=== PATIENT | male | born 1965 | race Caucasian/White ===

== ENCOUNTER 2017-11-20 09:45 | Emergency (ER) | payer SELFPAY ==
[~2017-11-20] VITALS: Ht 188 cm; Wt 76.7 kg
[2017-11-20] MEDS ORDERED: FAMOTIDINE 20 MG/2 ML ONE (10:29)
[2017-11-20] MEDS ORDERED: ONDANSETRON ODT 4 MG ONE (10:29)
[2017-11-20] MEDS ORDERED: SODIUM CHLORIDE 0.9% 1,000ML IVBOLUS ONE (10:30)
[2017-11-20] MEDS ORDERED: FAMOTIDINE 20 MG/2 ML IVP ONE (10:30)
[2017-11-20] MEDS ORDERED: SODIUM CHLORIDE FLUSH 10ML SYR IVF ONE (10:30)
[2017-11-20] MEDS ORDERED: ONDANSETRON ODT 4 MG PO ONE (10:30)
[2017-11-20 10:39] LABS: BASOPHILS # (AUTO) 0.01 x10^3/uL (0-0.1); BASOPHILS % (AUTO) 0 % (0-1); EOSINOPHILS # (AUTO) 0.01 x10^3/uL (0-0.4); EOSINOPHILS % (AUTO) 0 % (1-7); LYMPHOCYTES # (AUTO) 0.93 x10^3/uL (1-3.4); LYMPHOCYTES % (AUTO) 6 % (22-44); MD NO; MEAN CORPUSCULAR HEMOGLOBIN 32.8 pg (27.5-34.5); MEAN CORPUSCULAR HGB CONC 34.6 g/dL (33.2-36.2); MEAN CORPUSCULAR VOLUME 94.9 fL (81-97); MEAN PLATELET VOLUME 9.3 fL (7.4-10.4); MONOCYTES # (AUTO) 0.58 x10^3/uL (0.2-0.8); MONOCYTES % (AUTO) 4 % (2-9); NEUTROPHILS # (AUTO) 14.33 x10^3/uL (1.8-6.8); NEUTROPHILS % (AUTO) 90 % (42-75); PLATELET COUNT 164 x10^3/uL (130-400); RED BLOOD COUNT 5.37 x10^6/uL (4.38-5.82); RED CELL DISTRIBUTION WIDTH 12.3 % (9.4-14.8)
[2017-11-20 10:48] VITALS: BP 188/115
[2017-11-20 10:49] LABS: ALANINE AMINOTRANSFERASE 27 U/L (12-78); ALBUMIN 3.4 g/dL (3.4-5.0); ANION GAP 16 mmol/L (5-15); CALCIUM 9.3 mg/dL (8.5-10.1); CHLORIDE 91 mmol/L (98-107); CREATININE 1.11 mg/dL (0.7-1.3)
[2017-11-20 10:51] LABS: ALKALINE PHOSPHATASE 129 U/L (45-117); BILIRUBIN,TOTAL 1.5 mg/dL (0.2-1.0); TOTAL PROTEIN 7.3 g/dL (6.4-8.2)
[2017-11-20] MEDS ORDERED: INSULIN REGULAR 100 UNITS/ML, 3ML VIAL ONE ×2 (11:52→11:57)
[2017-11-20] MEDS ORDERED: INSULIN REGULAR 100 UNITS/ML, 3ML VIAL SQ-INSULIN ONE (12:00)
[2017-11-20] MEDS ORDERED: METOCLOPRAMIDE 5 MG/ML, 2ML ONE (12:26)
[2017-11-20] MEDS ORDERED: METOCLOPRAMIDE 5 MG/ML, 2ML IVPush ONE (12:30)
[2017-11-20 12:40] LABS: MICROSCOPIC INDICATED
[2017-11-20 12:54] LABS: CULTURE INDICATED? NO
[2017-11-21] MEDS ORDERED: BP MED PO (11:40)
[2017-11-21] MEDS ORDERED: GABA-827 PO (19:34)
== END 2017-11-20 12:57 | disposition home or self-care (01) ==
LOC: ED 11:00
DX: K52.9 Noninfective gastroenteritis and colitis, unspecified (principal); E11.65 Type 2 diabetes mellitus with hyperglycemia; F17.200 Nicotine dependence, unspecified, uncomplicated; Z91.14 Patient's other noncompliance with medication regimen
CPT/HCPCS: 36415; 80053; 81001; 82962; 83690; 85025; 93005; 96361; 96372; 96374; 99285; J7030; Q0162; S0028

== ENCOUNTER 2017-11-21 11:18 | Inpatient (IN) | payer MEDICAID, OTHER ==
[~2017-11-21] VITALS: Ht 188 cm; Wt 80.1 kg
[2017-11-21] MEDS ORDERED: BP MED PO (11:40)
[2017-11-21] MEDS ORDERED: ASPIRIN 81 MG TABLET CHEW PO ONE (12:00)
[2017-11-21] MEDS ORDERED: SODIUM CHLORIDE FLUSH 10ML SYR IVF ONE (12:00)
[2017-11-21] MEDS ORDERED: SODIUM CHLORIDE 0.9% 1,000ML IVBOLUS ONE (12:00)
[2017-11-21] MEDS ORDERED: ASPIRIN 81 MG TABLET CHEW ONE (12:06)
[2017-11-21] MEDS ORDERED: MORPHINE SULFATE 4 MG/ML, 1ML ONE ×2 (12:06→12:33)
[2017-11-21] MEDS ORDERED: ONDANSETRON ODT 4 MG ONE (12:06)
[2017-11-21] MEDS: MORPHINE SULFATE 4 MG/ML, 1ML IVPush PRN ×2 (12:10→12:37)
[2017-11-21 12:15] LABS: BASOPHILS # (AUTO) 0.04 x10^3/uL (0-0.1); BASOPHILS % (AUTO) 0 % (0-1); EOSINOPHILS # (AUTO) 0.02 x10^3/uL (0-0.4); EOSINOPHILS % (AUTO) 0 % (1-7); LYMPHOCYTES # (AUTO) 1.01 x10^3/uL (1-3.4); LYMPHOCYTES % (AUTO) 10 % (22-44); MD NO; MEAN CORPUSCULAR HEMOGLOBIN 32.8 pg (27.5-34.5); MEAN CORPUSCULAR HGB CONC 34.8 g/dL (33.2-36.2); MEAN CORPUSCULAR VOLUME 94.4 fL (81-97); MEAN PLATELET VOLUME 9.4 fL (7.4-10.4); MONOCYTES % (AUTO) 6 % (2-9); NEUTROPHILS # (AUTO) 8.21 x10^3/uL (1.8-6.8); NEUTROPHILS % (AUTO) 83 % (42-75); PLATELET COUNT 139 x10^3/uL (130-400); RED BLOOD COUNT 5.56 x10^6/uL (4.38-5.82); RED CELL DISTRIBUTION WIDTH 12.5 % (9.4-14.8)
[2017-11-21 12:26] LABS: ALANINE AMINOTRANSFERASE 31 U/L (12-78); ALBUMIN 3.5 g/dL (3.4-5.0); ANION GAP 12 mmol/L (5-15); CALCIUM 8.6 mg/dL (8.5-10.1); CHLORIDE 94 mmol/L (98-107); CREATININE 0.98 mg/dL (0.7-1.3)
[2017-11-21 12:30] LABS: ALKALINE PHOSPHATASE 118 U/L (45-117); BILIRUBIN,TOTAL 1.3 mg/dL (0.2-1.0); TOTAL PROTEIN 7.7 g/dL (6.4-8.2); TROPONIN I 0.088 ng/mL (0.000-0.045)
[2017-11-21] MEDS ORDERED: ONDANSETRON ODT 4 MG PO ONE (12:30)
[2017-11-21] MEDS ORDERED: NITROGLYCERIN OINT 2%, 1GM TP ONE ×2 (13:56→14:00)
[2017-11-21] MEDS ORDERED: ONDANSETRON 2MG/ML, 2ML IVPush PRN (15:00)
[2017-11-21] MEDS ORDERED: GLIMEPIRIDE 1 MG TABLET PO SCH (15:00)
[2017-11-21] MEDS ORDERED: GABAPENTIN 400 MG CAPSULE PO PRN (15:00)
[2017-11-21] MEDS ORDERED: hydrALAzine 20 MG/ML, 1ML IVPush PRN (15:00)
[2017-11-21] MEDS ORDERED: HYDROcodone/APAP 5/325 TABLET PO PRN (15:00)
[2017-11-21] MEDS ORDERED: ACETAMINOPHEN 325 MG TABLET PO PRN (15:00)
[2017-11-21 15:37] VITALS: BP 178/126
[2017-11-21] MEDS: METOPROLOL TARTRATE 50 MG TABLET PO SCH ×2 (16:00→21:55)
[2017-11-21] MEDS: ENOXAPARIN 40 MG/0.4 ML SQ SCH (16:00)
[2017-11-21] MEDS: NICOTINE 21 MG/24 HR PATCH.TD24 TD SCH (16:01)
[2017-11-21] MEDS: LISINOPRIL 20 MG TABLET PO SCH ×2 (16:01→21:54)
[2017-11-21] MEDS: POTASSIUM CHLORIDE 40 MEQ in SODIUM CHLORIDE 0.9% 500 ML IV SCH ×2 (16:01→21:04)
[2017-11-21] MEDS: INSULIN LISPRO 100 UNITS/ML, PEN SQ-INSULIN SCH ×2 (17:32→21:56)
[2017-11-21 19:29] VITALS: BP 128/87
[2017-11-21] MEDS ORDERED: GABA-827 PO (19:34)
[2017-11-21] MEDS ORDERED: INSULIN GLARGINE 100 UNITS/ML, PEN SQ-INSULIN SCH (21:00)
[2017-11-21] MEDS: morphine SULFATE 10 MG/ML, 1ML IVPush PRN ×2 (21:04→21:24)
[2017-11-21] MEDS: PANTOPRAZOLE 40 MG IV IVPush SCH (21:24)
[2017-11-21 21:42] LABS: TROPONIN I 0.086 ng/mL (0.000-0.045)
[2017-11-21] MEDS: GABAPENTIN 400 MG CAPSULE PO SCH (21:54)
[2017-11-21] MEDS ORDERED: ONDANSETRON 4 MG TABLET ONE (21:59)
[2017-11-22] VITALS (9 sets, daily range): BP systolic 111–166; BP diastolic 72–102
[2017-11-22] MEDS: morphine SULFATE 10 MG/ML, 1ML IVPush PRN ×2 (01:13→19:27)
[2017-11-22 04:45] LABS: BASOPHILS # (AUTO) 0.03 x10^3/uL (0-0.1); BASOPHILS % (AUTO) 0 % (0-1); EOSINOPHILS % (AUTO) 1 % (1-7); LYMPHOCYTES # (AUTO) 1.74 x10^3/uL (1-3.4); LYMPHOCYTES % (AUTO) 22 % (22-44); MD NO; MEAN CORPUSCULAR HEMOGLOBIN 33.2 pg (27.5-34.5); MEAN CORPUSCULAR VOLUME 94.9 fL (81-97); MEAN PLATELET VOLUME 9.2 fL (7.4-10.4); MONOCYTES # (AUTO) 0.67 x10^3/uL (0.2-0.8); MONOCYTES % (AUTO) 8 % (2-9); NEUTROPHILS # (AUTO) 5.55 x10^3/uL (1.8-6.8); NEUTROPHILS % (AUTO) 69 % (42-75); PLATELET COUNT 119 x10^3/uL (130-400); RED CELL DISTRIBUTION WIDTH 12.4 % (9.4-14.8)
[2017-11-22 04:54] LABS: ALANINE AMINOTRANSFERASE 23 U/L (12-78); ALBUMIN 2.5 g/dL (3.4-5.0); ANION GAP 7 mmol/L (5-15); CALCIUM 7.8 mg/dL (8.5-10.1); CHLORIDE 102 mmol/L (98-107); CREATININE 0.86 mg/dL (0.7-1.3)
[2017-11-22 04:57] LABS: ALKALINE PHOSPHATASE 77 U/L (45-117); BILIRUBIN,TOTAL 0.5 mg/dL (0.2-1.0); CHOL/HDL RATIO 6.4; CHOLESTEROL, TOTAL 204 mg/dL (140-239); HDL CHOL % 16 % (26-37); HDL CHOLESTEROL (DIRECT) 32 mg/dL (40-60); TOTAL PROTEIN 5.6 g/dL (6.4-8.2); TRIGLYCERIDES 436 mg/dL (50-200)
[2017-11-22 06:08] LABS: TROPONIN I 0.084 ng/mL (0.000-0.045)
[2017-11-22] MEDS: INSULIN LISPRO 100 UNITS/ML, PEN SQ-INSULIN SCH ×4 (08:08→21:58)
[2017-11-22] MEDS ORDERED: NITROGLYCERIN SINGLE TAB 0.4 MG SL ONE (09:53)
[2017-11-22] MEDS: GABAPENTIN 400 MG CAPSULE PO SCH ×3 (10:36→21:57)
[2017-11-22] MEDS: METOPROLOL TARTRATE 50 MG TABLET PO SCH ×2 (10:36→21:56)
[2017-11-22] MEDS: LISINOPRIL 20 MG TABLET PO SCH ×2 (10:36→21:57)
[2017-11-22] MEDS: GLIMEPIRIDE 1 MG TABLET PO SCH (10:36)
[2017-11-22 10:37] LABS: HEMOGLOBIN A1C 10.9 % (4.2-6.3)
[2017-11-22] MEDS: PANTOPRAZOLE 40 MG IV IVPush SCH ×2 (10:37→21:57)
[2017-11-22] MEDS: NICOTINE 21 MG/24 HR PATCH.TD24 TD SCH (16:33)
[2017-11-22] MEDS: ENOXAPARIN 40 MG/0.4 ML SQ SCH (16:34)
[2017-11-22] MEDS ORDERED: SODIUM CHLORIDE 0.9% 1,000 ML IV ONE (16:36)
[2017-11-22] MEDS ORDERED: NITROGLYCERIN 0.4 MG BOTTLE (25 TABS) SL ONE (18:44)
[2017-11-22] MEDS ORDERED: NITROGLYCERIN 0.4 MG/SPRAY SL PRN (19:00)
[2017-11-22] MEDS: NITROGLYCERIN 0.4 MG BOTTLE (25 TABS) SL PRN ×2 (19:11→19:16)
[2017-11-22] MEDS: ATORVASTATIN 40 MG TABLET PO SCH (21:57)
[2017-11-22] MEDS: INSULIN GLARGINE 100 UNITS/ML, PEN SQ-INSULIN SCH (22:04)
[2017-11-23 02:55] VITALS: BP 118/79
[2017-11-23 05:09] LABS: ANION GAP 8 mmol/L (5-15); CALCIUM 8.3 mg/dL (8.5-10.1); CHLORIDE 103 mmol/L (98-107); CREATININE 0.93 mg/dL (0.7-1.3)
[2017-11-23] MEDS: INSULIN LISPRO 100 UNITS/ML, PEN SQ-INSULIN SCH ×4 (07:00→21:51)
[2017-11-23 08:18] VITALS: BP 143/91
[2017-11-23] MEDS: GLIMEPIRIDE 1 MG TABLET PO SCH (08:51)
[2017-11-23] MEDS: GABAPENTIN 400 MG CAPSULE PO SCH ×3 (08:52→21:53)
[2017-11-23] MEDS: LISINOPRIL 20 MG TABLET PO SCH ×2 (08:52→21:52)
[2017-11-23] MEDS: PANTOPRAZOLE 40 MG IV IVPush SCH ×2 (08:52→21:52)
[2017-11-23] MEDS: POTASSIUM CHLORIDE 20 MEQ TAB.ER.PRT PO SCH ×2 (08:52→10:35)
[2017-11-23] MEDS: METOPROLOL TARTRATE 50 MG TABLET PO SCH ×2 (08:52→21:52)
[2017-11-23] MEDS ORDERED: VERAPAMIL 2.5 MG/ML, 2ML ONE (13:10)
[2017-11-23] MEDS ORDERED: BIVALIRUDIN 250 MG ONE ×2 (13:10→14:29)
[2017-11-23] MEDS ORDERED: FENTANYL PF 100 MCG/2ML ONE ×2 (13:10→14:06)
[2017-11-23] MEDS ORDERED: MIDAZOLAM 1 MG/ML, 5ML ONE (13:10)
[2017-11-23] MEDS ORDERED: TICAGRELOR 90 MG TABLET ONE (13:10)
[2017-11-23] MEDS ORDERED: HEPARIN 1,000 UNITS/ML, 10ML ONE (13:10)
[2017-11-23] MEDS ORDERED: LIDOCAINE-MPF 2%, 2ML ONE (13:11)
[2017-11-23] MEDS ORDERED: DIPHENHYDRAMINE 50 MG/ML, 1ML ONE (13:33)
[2017-11-23] MEDS ORDERED: ASPIRIN 325 MG TABLET EC ONE (14:24)
[2017-11-23] MEDS: SODIUM CHLORIDE 0.9% 1,000 ML IV SCH ×2 (14:27→23:49)
[2017-11-23] MEDS ORDERED: BIVALIRUDIN 250 MG in DEXTROSE 5% 100 ML IV SCH (14:27)
[2017-11-23 14:30] VITALS: BP 127/85
[2017-11-23] MEDS: NICOTINE 21 MG/24 HR PATCH.TD24 TD SCH (15:38)
[2017-11-23] MEDS ORDERED: ZIPRASIDONE 20 MG INJ IM PRN (17:30)
[2017-11-23] MEDS ORDERED: LORazepam 2 MG/ML, 1ML IVPush PRN (17:30)
[2017-11-23 19:07] VITALS: BP 134/81
[2017-11-23 21:50] VITALS: BP 114/72
[2017-11-23] MEDS: INSULIN GLARGINE 100 UNITS/ML, PEN SQ-INSULIN SCH (21:51)
[2017-11-23] MEDS: ENOXAPARIN 40 MG/0.4 ML SQ SCH (21:52)
[2017-11-23] MEDS: ATORVASTATIN 40 MG TABLET PO SCH (21:52)
[2017-11-23] MEDS: TICAGRELOR 90 MG TABLET PO SCH (21:52)
[2017-11-24 04:50] VITALS: BP 107/73
[2017-11-24] MEDS: SODIUM CHLORIDE 0.9% 1,000 ML IV SCH (05:05)
[2017-11-24 05:17] LABS: ALBUMIN 2.5 g/dL (3.4-5.0); ANION GAP 7 mmol/L (5-15); CALCIUM 8.4 mg/dL (8.5-10.1); CHLORIDE 108 mmol/L (98-107); CREATININE 0.84 mg/dL (0.7-1.3)
[2017-11-24] MEDS: INSULIN LISPRO 100 UNITS/ML, PEN SQ-INSULIN SCH (06:56)
[2017-11-24 06:58] VITALS: BP 106/66
[2017-11-24] MEDS: TICAGRELOR 90 MG TABLET PO SCH (08:15)
[2017-11-24] MEDS: LISINOPRIL 20 MG TABLET PO SCH (08:15)
[2017-11-24] MEDS: PANTOPRAZOLE 40 MG IV IVPush SCH (08:15)
[2017-11-24] MEDS: GLIMEPIRIDE 1 MG TABLET PO SCH (08:15)
[2017-11-24] MEDS: GABAPENTIN 400 MG CAPSULE PO SCH (08:16)
[2017-11-24] MEDS: METOPROLOL TARTRATE 50 MG TABLET PO SCH (08:16)
[2017-11-24] MEDS ORDERED: ASPIRIN 81 MG TABLET EC PO SCH (09:00)
[2017-11-24] MEDS ORDERED: METF500T17 PO (10:09)
[2017-11-24] MEDS ORDERED: ASPI-621 PO (10:09)
[2017-11-24] MEDS ORDERED: TICA90TA PO (10:09)
[2017-11-24] MEDS ORDERED: METO50TA82 PO (10:09)
[2017-11-24] MEDS ORDERED: GLIM4TAB2 PO (10:09)
[2017-11-24] MEDS ORDERED: ATOR40TA78 PO (10:09)
[2017-11-24] MEDS ORDERED: NICO-487 TD (10:09)
[2017-11-24] MEDS ORDERED: LISI-170 PO (10:09)
[2017-11-24] MEDS ORDERED: BIVALIRUDIN 250 MG in DEXTROSE 5% 100 ML IV SCH (14:27)
[2017-11-24] MEDS ORDERED: CLOP75TA52 PO (15:45)
== END 2017-11-24 12:18 | disposition home or self-care (01) | DRG 246 ==
LOC: ED 13:52 → SUATTDRO 14:39 → EDIP 14:45 → 5SO 15:05 → DCLOUNGE 11-24 11:57
PROVIDERS: ADMIT Internal Medicine; ATTEND Internal Medicine
PROC: 027034Z Dilation of Coronary Artery, One Artery with Drug-eluting Intraluminal Device, Percutaneous Approach (ICD-10-PCS; principal; 2017-11-21)
PROC: 4A023N7 Measurement of Cardiac Sampling and Pressure, Left Heart, Percutaneous Approach (ICD-10-PCS; 2017-11-21)
PROC: B2111ZZ Fluoroscopy of Multiple Coronary Arteries using Low Osmolar Contrast (ICD-10-PCS; 2017-11-21)
PROC: B2151ZZ Fluoroscopy of Left Heart using Low Osmolar Contrast (ICD-10-PCS; 2017-11-21)
DX: I21.4 Non-ST elevation (NSTEMI) myocardial infarction (principal); E11.00 Type 2 diabetes mellitus with hyperosmolarity without nonketotic hyperglycemic-hyperosmolar coma (NKHHC); E87.0 Hyperosmolality and hypernatremia; D75.1 Secondary polycythemia; E11.40 Type 2 diabetes mellitus with diabetic neuropathy, unspecified; E11.65 Type 2 diabetes mellitus with hyperglycemia; E78.5 Hyperlipidemia, unspecified; E87.6 Hypokalemia; F41.9 Anxiety disorder, unspecified; I10 Essential (primary) hypertension; I25.10 Atherosclerotic heart disease of native coronary artery without angina pectoris; Z80.1 Family history of malignant neoplasm of trachea, bronchus and lung; Z91.14 Patient's other noncompliance with medication regimen; Z79.899 Other long term (current) drug therapy; Z79.82 Long term (current) use of aspirin; Z88.1 Allergy status to other antibiotic agents
CPT/HCPCS: 36415; 93458; 93571; 99285; C9600; 71046; 78452; 80048; 80053; 80061; 80307; 82040; 82962; 83036; 83690; 83735; 83880; 84100; 84443; 84484; 85018; 85025; 93005; 93017; 93306; 96374; 99156; 99157; C1769; C1894; G0378; J0583; J1644; J1650; J2250; J2405; J3010; J3480; J3490; Q0162; A9502; C1725; C1874; C1887; C9113; C9898; J0360; J1200; J1815; J2060; J2270; J7030; J7040; Q9967

== ENCOUNTER 2018-01-11 14:06 | Observation (INO) | payer MEDICAID ==
[~2018-01-11] VITALS: Ht 185.4 cm; Wt 60.6 kg
[~2018-01-11 14:06] MED LIST: ASPI81TA45 PO; ATOR40TA78 PO; BP MED PO; CLOP75TA52 PO; GABA-827 PO; GLIM4TAB2 PO; LISI-170 PO; METF500T17 PO; METO50TA82 PO; NICO-487 TD; TICA90TA PO
[2018-01-11 15:07] LABS: BASOPHILS # (AUTO) 0.03 x10^3/uL (0-0.1); BASOPHILS % (AUTO) 0 % (0-1); EOSINOPHILS # (AUTO) 0.12 x10^3/uL (0-0.4); EOSINOPHILS % (AUTO) 2 % (1-7); LYMPHOCYTES # (AUTO) 1.23 x10^3/uL (1-3.4); LYMPHOCYTES % (AUTO) 18 % (22-44); MD NO; MEAN CORPUSCULAR HEMOGLOBIN 31.9 pg (27.5-34.5); MEAN CORPUSCULAR HGB CONC 33.2 g/dL (33.2-36.2); MEAN CORPUSCULAR VOLUME 96.3 fL (81-97); MEAN PLATELET VOLUME 7.8 fL (7.4-10.4); MONOCYTES # (AUTO) 0.62 x10^3/uL (0.2-0.8); MONOCYTES % (AUTO) 9 % (2-9); NEUTROPHILS # (AUTO) 4.85 x10^3/uL (1.8-6.8); NEUTROPHILS % (AUTO) 71 % (42-75); PLATELET COUNT 202 x10^3/uL (130-400); RED BLOOD COUNT 3.87 x10^6/uL (4.38-5.82); RED CELL DISTRIBUTION WIDTH 14.1 % (9.4-14.8)
[2018-01-11 15:26] LABS: ALBUMIN 3.4 g/dL (3.4-5.0); ANION GAP 9 mmol/L (5-15); CALCIUM 8.8 mg/dL (8.5-10.1); CHLORIDE 105 mmol/L (98-107)
[2018-01-11 15:31] LABS: ALANINE AMINOTRANSFERASE 75 U/L (12-78); ALKALINE PHOSPHATASE 127 U/L (45-117); BILIRUBIN,TOTAL 0.3 mg/dL (0.2-1.0); CREATININE 1.01 mg/dL (0.7-1.3); TOTAL PROTEIN 7.4 g/dL (6.4-8.2); TROPONIN I < 0.015 ng/mL (0.000-0.045)
[2018-01-11] MEDS ORDERED: SODIUM CHLORIDE FLUSH 10ML SYR IVF ONE (18:30)
[2018-01-11] MEDS ORDERED: OMNIPAQUE 350 MG/ML, 100ML BOTTLE ONE (19:10)
[2018-01-11] MEDS ORDERED: VARE0.5T PO (20:06)
[2018-01-11] MEDS ORDERED: SITA100T PO (20:06)
[2018-01-11] MEDS ORDERED: MULT-658 PO (20:06)
[2018-01-11] MEDS ORDERED: BISACODYL 10 MG SUPP PR PRN (20:30)
[2018-01-11] MEDS ORDERED: ONDANSETRON ODT 4 MG PO PRN (20:30)
[2018-01-11] MEDS ORDERED: ACETAMINOPHEN 325 MG TABLET PO PRN (20:30)
[2018-01-11] MEDS ORDERED: POLYETHYLENE GLYCOL 17 GM PACKET PO PRN (20:30)
[2018-01-11 21:00] VITALS: BP 164/92
[2018-01-11 21:01] LABS: HEMOGLOBIN A1C 7.6 % (4.2-6.3)
[2018-01-11] MEDS ORDERED: NICOTINE 21 MG/24 HR PATCH.TD24 TD SCH (21:30)
[2018-01-11] MEDS: METOPROLOL TARTRATE 50 MG TABLET PO SCH (23:12)
[2018-01-11] MEDS: NS + 20MEQ KCL 1,000 ML IV SCH (23:12)
[2018-01-11] MEDS: ATORVASTATIN 40 MG TABLET PO SCH (23:12)
[2018-01-11] MEDS: GABAPENTIN 400 MG CAPSULE PO SCH (23:13)
[2018-01-12] VITALS (8 sets, daily range): BP systolic 152–188; BP diastolic 83–98
[2018-01-12 06:16] LABS: BASOPHILS # (AUTO) 0.03 x10^3/uL (0-0.1); BASOPHILS % (AUTO) 0 % (0-1); EOSINOPHILS # (AUTO) 0.08 x10^3/uL (0-0.4); EOSINOPHILS % (AUTO) 1 % (1-7); LYMPHOCYTES # (AUTO) 1.18 x10^3/uL (1-3.4); LYMPHOCYTES % (AUTO) 18 % (22-44); MD NO; MEAN CORPUSCULAR HEMOGLOBIN 33.9 pg (27.5-34.5); MEAN CORPUSCULAR VOLUME 96.9 fL (81-97); MONOCYTES # (AUTO) 0.87 x10^3/uL (0.2-0.8); MONOCYTES % (AUTO) 13 % (2-9); NEUTROPHILS # (AUTO) 4.59 x10^3/uL (1.8-6.8); NEUTROPHILS % (AUTO) 68 % (42-75); PLATELET COUNT 178 x10^3/uL (130-400); RED BLOOD COUNT 3.38 x10^6/uL (4.38-5.82); RED CELL DISTRIBUTION WIDTH 14.2 % (9.4-14.8)
[2018-01-12 06:28] LABS: ALBUMIN 2.9 g/dL (3.4-5.0); ANION GAP 6 mmol/L (5-15); CALCIUM 8.3 mg/dL (8.5-10.1); CHLORIDE 111 mmol/L (98-107)
[2018-01-12 06:32] LABS: ALANINE AMINOTRANSFERASE 55 U/L (12-78); ALKALINE PHOSPHATASE 102 U/L (45-117); BILIRUBIN,TOTAL 0.3 mg/dL (0.2-1.0); CHOL/HDL RATIO 2.2; CHOLESTEROL, TOTAL 110 mg/dL (140-239); CREATININE 0.81 mg/dL (0.7-1.3); HDL CHOL % 46 % (26-37); HDL CHOLESTEROL (DIRECT) 51 mg/dL (40-60); LDL CHOLESTEROL,CALCULATED 45 mg/dL (54-169); LDL/HDL RATIO 0.9 (0.5-3.0); TOTAL PROTEIN 6.1 g/dL (6.4-8.2); TRIGLYCERIDES 69 mg/dL (50-200); VLDL CHOLESTEROL 14 mg/dL (0-25)
[2018-01-12] MEDS: GABAPENTIN 400 MG CAPSULE PO SCH ×3 (08:19→20:51)
[2018-01-12] MEDS: VARENICLINE 1MG TABLET PO SCH (08:19)
[2018-01-12] MEDS: CLOPIDOGREL 75 MG TABLET PO SCH (08:20)
[2018-01-12] MEDS: SENNA/DOCUSATE TABLET PO SCH (08:20)
[2018-01-12] MEDS: METOPROLOL TARTRATE 50 MG TABLET PO SCH ×2 (08:20→20:53)
[2018-01-12] MEDS: LINAGLIPTIN 5 MG TAB PO SCH (08:20)
[2018-01-12] MEDS: GLIMEPIRIDE 4 MG TABLET PO SCH ×2 (08:20→15:58)
[2018-01-12] MEDS: MULTIVITAMIN 1 TABLET PO SCH (08:20)
[2018-01-12] MEDS: ASPIRIN 81 MG TABLET EC PO SCH (08:20)
[2018-01-12] MEDS: NS + 20MEQ KCL 1,000 ML IV SCH ×2 (09:44→22:18)
[2018-01-12] MEDS: LISINOPRIL 10 MG TABLET PO SCH (13:37)
[2018-01-12 13:49] LABS: THYROID STIMULATING HORMONE 1.07 mIU/L (0.358-3.740)
[2018-01-12] MEDS: hydrALAzine 20 MG/ML, 1ML IV PRN (15:59)
[2018-01-12] MEDS: ATORVASTATIN 40 MG TABLET PO SCH (20:51)
[2018-01-13 00:55] VITALS: BP 173/95
[2018-01-13] MEDS: hydrALAzine 20 MG/ML, 1ML IV PRN (01:05)
[2018-01-13 05:46] LABS: BASOPHILS # (AUTO) 0.03 x10^3/uL (0-0.1); BASOPHILS % (AUTO) 0 % (0-1); EOSINOPHILS # (AUTO) 0.06 x10^3/uL (0-0.4); EOSINOPHILS % (AUTO) 1 % (1-7); LYMPHOCYTES % (AUTO) 18 % (22-44); MD NO; MEAN CORPUSCULAR HEMOGLOBIN 32.4 pg (27.5-34.5); MEAN CORPUSCULAR HGB CONC 33.6 g/dL (33.2-36.2); MEAN CORPUSCULAR VOLUME 96.4 fL (81-97); MEAN PLATELET VOLUME 8.2 fL (7.4-10.4); MONOCYTES # (AUTO) 0.87 x10^3/uL (0.2-0.8); MONOCYTES % (AUTO) 12 % (2-9); NEUTROPHILS # (AUTO) 5.19 x10^3/uL (1.8-6.8); NEUTROPHILS % (AUTO) 70 % (42-75); PLATELET COUNT 211 x10^3/uL (130-400); RED CELL DISTRIBUTION WIDTH 14.8 % (9.4-14.8)
[2018-01-13 05:58] LABS: ANION GAP 9 mmol/L (5-15); CALCIUM 8.7 mg/dL (8.5-10.1); CHLORIDE 112 mmol/L (98-107); CREATININE 0.81 mg/dL (0.7-1.3)
[2018-01-13] MEDS: NS + 20MEQ KCL 1,000 ML IV SCH (06:00)
[2018-01-13 07:46] VITALS: BP 150/83
[2018-01-13] MEDS: GLIMEPIRIDE 4 MG TABLET PO SCH (08:12)
[2018-01-13] MEDS: VARENICLINE 1MG TABLET PO SCH (08:51)
[2018-01-13] MEDS: LINAGLIPTIN 5 MG TAB PO SCH (08:51)
[2018-01-13] MEDS: CLOPIDOGREL 75 MG TABLET PO SCH (08:51)
[2018-01-13] MEDS: METOPROLOL TARTRATE 50 MG TABLET PO SCH (08:52)
[2018-01-13] MEDS: LISINOPRIL 10 MG TABLET PO SCH (08:52)
[2018-01-13] MEDS: GABAPENTIN 400 MG CAPSULE PO SCH (08:52)
[2018-01-13] MEDS: MULTIVITAMIN 1 TABLET PO SCH (08:52)
[2018-01-13] MEDS: ASPIRIN 81 MG TABLET EC PO SCH (08:53)
[2018-01-13] MEDS: SENNA/DOCUSATE TABLET PO SCH (09:00)
[2018-01-13] MEDS ORDERED: LISI-167 PO (10:13)
[2018-01-13] MEDS ORDERED: LISINOPRIL 10 MG TABLET PO SCH (21:00)
== END 2018-01-13 14:21 | disposition home or self-care (01) ==
LOC: ED 19:58 → INTOOBSV 19:59 → EDIP 19:59 → ED 20:26 → 4EST 20:58 → DCLOUNGE 01-13 14:02
PROVIDERS: ADMIT Internal Medicine; ATTEND Internal Medicine
DX: R27.0 Ataxia, unspecified (principal); E11.42 Type 2 diabetes mellitus with diabetic polyneuropathy; D64.9 Anemia, unspecified; E87.6 Hypokalemia; F12.90 Cannabis use, unspecified, uncomplicated; F17.210 Nicotine dependence, cigarettes, uncomplicated; I10 Essential (primary) hypertension; I25.10 Atherosclerotic heart disease of native coronary artery without angina pectoris; Z59.0 Homelessness; H53.8 Other visual disturbances; I65.09 Occlusion and stenosis of unspecified vertebral artery
CPT/HCPCS: 36415; 70450; 70496; 70498; 70551; 71045; 80048; 80053; 80061; 82607; 82962; 83036; 83735; 84443; 84484; 85025; 93005; 96365; 96366; 96375; 96376; 97162; 97165; 99284; G0378; G8978; G8979; G8980; J0360; J3480; Q9967